=== PATIENT | female | born 1975 | race African-American/Black ===

== ENCOUNTER 2022-08-24 17:13 | Emergency (ER) | payer OTHER ==
[~2022-08-24] VITALS: Ht 160 cm; Wt 71.0 kg
[2022-08-24 17:13] VITALS: BP 125/85
[2022-08-24 17:51] LABS: COVID AG,FIA SOURCE NASOPHARYNGEAL
[2022-08-24 18:17] LABS: INFLUENZA TYPE A NEGATIVE FOR TYPE A (NEGATIVE); INFLUENZA TYPE B NEGATIVE FOR TYPE B (NEGATIVE)
== END 2022-08-24 19:00 | disposition left against medical advice (07) ==
LOC: EMS 17:17
DX: Z53.21 Procedure and treatment not carried out due to patient leaving prior to being seen by health care provider (principal); Z20.822 Contact with and (suspected) exposure to COVID-19
CPT/HCPCS: 87804; 93005; 99284; Z7502